=== PATIENT | female | born 1965 | race African-American/Black ===

== ENCOUNTER 2019-02-02 14:23 | Emergency (ER) | payer MEDICAID ==
[~2019-02-02] VITALS: Ht 170.2 cm; Wt 112.5 kg
[~2019-02-02 14:23] MED LIST: BACLOFEN10 MG ORAL; BENAZEPRIL HCL20 MG ORAL; CIPRO500 MG PO; DILAUDID2 MG PO; GABAPENTIN400 MG PO; HYDROMORPHONE HC4 M1 PO; IBUPROFEN600 MG PO; LIORESAL10 MG PO; MACRODANTIN100 MG ORAL; METRONIDAZOLE500 MG ORAL; NORCO 5-325 TA1 EACH ORAL; NORCO 5-325 TA1 EACH PO; ROPINIROLE HCL0.5 MG PO; VALIUM5 MG ORAL
[2019-02-02] MEDS ORDERED: Hydromorphone 0.5mg/0.5ml inj IVP ONE (14:45)
--- NOTE | 2019-02-02 14:53 | Emergency Room Report ---
History of Present Illness General Chief Complaint: Pain Source: Patient, Medical Record Present Illness HPI 53-year-old female history of chronic back pain, left hip pain, recent left hip replacement October 2018 she stated they fractured her left femur, and [place] , presents with continued left hip pain worsened with movement alleviated with rest severity is moderate, intermittent. Patient denies any fever/chills, patient presents for evaluation, patient has not been able to obtain an ortho follow-up. Patient relocated to [place]. Patient presents for eval. Allergies: Coded Allergies: No Known Allergies (Unverified , 06/01/12) Patient History Past Medical History: see triage record Reviewed Nursing Documentation: PMH: Agreed; PSxH: Agreed Nursing Documentation-PMH Hx Hypertension: Yes Review of Systems All Other Systems: negative except mentioned in HPI Physical Exam Vital Signs Date Time Temp Pulse Resp B/P (MAP) Pulse Ox O2 Delivery O2 Flow Rate FiO2 02/02/19 14:30 98.2 85 18 124/82 (96) 96 Room Air Sp02 EP Interpretation: reviewed, normal General Appearance: well appearing, no apparent distress, alert Head: normocephalic, atraumatic Eyes: bilateral eye PERRL, bilateral eye EOMI ENT: uvula midline, moist mucus membranes Neck: supple, thyroid normal, supple/symm/no masses Respiratory: lungs clear, no respiratory distress, no retraction, no accessory muscle use Cardiovascular #1: normal peripheral pulses, regular rate, rhythm, no edema, no gallop, no murmur Gastrointestinal: non tender, soft, no guarding, no rebound Musculoskeletal: other - Mobile Application Engineer Alena Ng RN Left hip: Limited range of motion, patient is able to ambulate, patient is tender to palpation left lateral hip incision is clean dry intact Neurologic: alert, oriented x3 Psychiatric: mood/affect normal Skin: no rash, warm/dry Medical Decision Making Diagnostic Impression: Primary Impression: Left hip pain ER Course Cures report ran. 53-year-old female presents with left hip pain, concerning for possible chronic fracture versus bursitis versus hardware malalignment X-ray of the left hip shows a old fracture line, patient is aware that she had a fracture, she is currently using crutches to get around will provide a walker Counseled patient to follow-up with orthopedics Disposition home with return precautions Procedure: XRAY Hip Routine 2v+ w/Pelv-L Indication: Left hip pain Technique: 2 views of the left hip, one view of the pelvis Comparison: none Findings: There is a total left hip arthroplasty prosthesis in place. This appears well aligned. A fracture line extends obliquely in the lateral subtrochanteric region. This appears nondisplaced, fracture margins are somewhat indistinct. No worrisome periprosthetic lucency. No other fractures are demonstrated. The right hip joint space appears preserved. There are some osteophytes of the right hip demonstrated. Impression: Postsurgical changes, as described, hardware intact Nondisplaced fracture line involving the lateral subtrochanteric femur, acuity indeterminate. Per discussion with referring physician, patient states proximal femur was fractured at the time of surgery, so this could be a delayed union of that injury. Recommend comparison with any images taken at the time of surgery. Correlate with clinical findings and history Findings discussed by phone with Dr. Goodman at the time of interpretation Dictated By: Scott Aguilar MD Electronically Signed By: Scott Aguilar MD Signed Date/Time 02/02/19 7680 CC: Campbell Goodman MD Laboratory Tests Test 02/02/19 15:00 White Blood Count 9.0 K/UL (4.8-10.8) Red Blood Count 4.71 M/UL (4.20-5.40) Hemoglobin 13.9 G/DL (12.0-16.0) Hematocrit 42.4 % (37.0-47.0) Mean Corpuscular Volume 90 FL (80-99) Mean Corpuscular Hemoglobin 29.4 PG (27.0-31.0) Mean Corpuscular Hemoglobin Concent 32.7 G/DL (32.0-36.0) Red Cell Distribution Width 13.7 % (11.6-14.8) Platelet Count 276 K/UL (150-450) Mean Platelet Volume 7.1 FL (6.5-10.1) Neutrophils (%) (Auto) 47.5 % (45.0-75.0) Lymphocytes (%) (Auto) 43.3 % (20.0-45.0) Monocytes (%) (Auto) 5.9 % (1.0-10.0) Eosinophils (%) (Auto) 1.9 % (0.0-3.0) Basophils (%) (Auto) 1.4 % (0.0-2.0) Prothrombin Time 10.3 SEC (9.30-11.50) Prothrombin Time INR 1.0 (0.9-1.1) PTT 27 SEC (23-33) Sodium Level 143 MMOL/L (136-145) Potassium Level 3.7 MMOL/L (3.5-5.1) Chloride Level 106 MMOL/L (98-107) Carbon Dioxide Level 27 MMOL/L (21-32) Anion Gap 10 mmol/L (5-15) Blood Urea Nitrogen 12 mg/dL (7-18) Creatinine 0.9 MG/DL (0.55-1.30) Estimate Glomerular Filtration Rate > 60 mL/min (>60) Glucose Level 136 MG/DL (74-106) H Calcium Level 9.3 MG/DL (8.5-10.1) Total Bilirubin 0.2 MG/DL (0.2-1.0) Aspartate Amino Transferase (AST) 15 U/L (15-37) Alanine Aminotransferase (ALT) 19 U/L (12-78) Alkaline Phosphatase 68 U/L (46-116) Total Protein 7.0 G/DL (6.4-8.2) Albumin 3.7 G/DL (3.4-5.0) Globulin 3.3 g/dL Albumin/Globulin Ratio 1.1 (1.0-2.7) Last Vital Signs Date Time Temp Pulse Resp B/P (MAP) Pulse Ox O2 Delivery O2 Flow Rate FiO2 02/02/19 14:30 98.2 85 18 124/82 (96) 96 Room Air Disposition: HOME, SELF-CARE Condition: Stable Scripts Oxycodone/Acetaminophen 5-325* (PERCOCET 5-325 MG TABLET*) 1 Each Tablet 1 TAB ORAL Q8H PRN for For Pain, #12 TAB 0 Refills Prov: Campbell Goodman MD 02/02/19 Referrals: Deejay Armijo MD [facility] Patient Instructions: Femoral Neck (Hip) Stress Fracture-SportsMed Additional Instructions: The patient was provided with discharge instructions, notified to follow-up with a primary care doctor and or specialist in the next 24-48 hours, and to return to the ED if they have worsening of their symptoms. Please note that this report is being documented using DRAGON technology. This can lead to erroneous entry secondary to incorrect interpretation by the dictating instrument. Campbell Goodman MD Feb 02, 2019 14:53
[2019-02-02 15:10] VITALS: BP 124/82
[2019-02-02 15:15] LABS: BASOPHILS % (AUTO) 1.4 % (0.0-2.0); EOSINOPHILS % (AUTO) 1.9 % (0.0-3.0); HEMATOCRIT 42.4 % (37.0-47.0); HEMOGLOBIN 13.9 G/DL (12.0-16.0); LYMPHOCYTES % (AUTO) 43.3 % (20.0-45.0); MEAN CORPUSCULAR VOLUME 90 FL (80-99); MONOCYTES % (AUTO) 5.9 % (1.0-10.0); NEUTROPHILS % (AUTO) 47.5 % (45.0-75.0); PLATELET COUNT 276 K/UL (150-450); RED BLOOD COUNT 4.71 M/UL (4.20-5.40); RED CELL DISTRIBUTION WIDTH 13.7 % (11.6-14.8)
[2019-02-02 15:32] LABS: ANION GAP 10 mmol/L (5-15); BLOOD UREA NITROGEN 12 mg/dL (7-18); CALCIUM 9.3 MG/DL (8.5-10.1); CARBON DIOXIDE 27 MMOL/L (21-32); CHLORIDE 106 MMOL/L (98-107); CREATININE 0.9 MG/DL (0.55-1.30); POTASSIUM 3.7 MMOL/L (3.5-5.1); SODIUM 143 MMOL/L (136-145)
[2019-02-02] MEDS ORDERED: Hydromorphone 0.5mg/0.5ml inj ONE (15:35)
[2019-02-02 15:46] LABS: ALANINE AMINOTRANSFERASE 19 U/L (12-78); ALBUMIN 3.7 G/DL (3.4-5.0); ALKALINE PHOSPHATASE 68 U/L (46-116); ASPARTATE AMINO TRANSFERASE 15 U/L (15-37); BILIRUBIN,TOTAL 0.2 MG/DL (0.2-1.0)
[2019-02-02 16:09] LABS: ALBUMIN/GLOBULIN RATIO 1.1 (1.0-2.7)
--- NOTE | 2019-02-02 16:15 | Diagnostic Imaging Report ---
Indication: Left hip pain Technique: 2 views of the left hip, one view of the pelvis Comparison: none Findings: There is a total left hip arthroplasty prosthesis in place. This appears well aligned. A fracture line extends obliquely in the lateral subtrochanteric region. This appears nondisplaced, fracture margins are somewhat indistinct. No worrisome periprosthetic lucency. No other fractures are demonstrated. The right hip joint space appears preserved. There are some osteophytes of the right hip demonstrated. Impression: Postsurgical changes, as described, hardware intact Nondisplaced fracture line involving the lateral subtrochanteric femur, acuity indeterminate. Per discussion with referring physician, patient states proximal femur was fractured at the time of surgery, so this could be a delayed union of that injury. Recommend comparison with any images taken at the time of surgery. Correlate with clinical findings and history Findings discussed by phone with Dr. Goodman at the time of interpretation
[2019-02-02] MEDS ORDERED: PERCOCET 5-3251 EACH ORAL (16:21)
[2019-02-02 16:46] VITALS: BP 123/77
== END 2019-02-02 17:09 | disposition home or self-care (01) ==
LOC: EMR 14:50
DX: M25.552 Pain in left hip (principal); Z96.642 Presence of left artificial hip joint; I10 Essential (primary) hypertension
CPT/HCPCS: 36415; 73502; 80053; 85025; 85610; 85730; 96374; 96375; J1170; J2405; Z7502; 99284